=== PATIENT | female | born 1975 | race Caucasian/White ===

== ENCOUNTER 2024-08-19 13:19 | Emergency (ER) | payer BC, SELFPAY ==
[2024-08-19 13:37] VITALS: BP 119/79; PULSE 74; TEMP 37.1; O2SAT 100; BMI 27.5
--- NOTE | 2024-08-19 14:49 | ED.UPPEXIN1 ---
HPI HPI - Extremity Injury (Upper) General Chief Complaint: Extremity Injury, Upper Stated Complaint: SWOLLEN FINGER Time Seen by Provider: 08/19/24 13:20 Source: patient Mode of arrival: walk-in Limitations: no limitations History of Present Illness HPI narrative: Patient is a 48-year-old female who presents to the emergency department for evaluation of an injury to the left fourth finger. She states she has a Labrador puppy and her finger got caught in the dog's collar while trying to restrain him. Her left fourth finger was injured, she continues to have pain, swelling and bruising. No medications prior to arrival. She has no concern for . She is right-hand dominant. Related Data Previous Rx's ?Medication ?Instructions ?Recorded hydrocodone 5 mg-acetaminophen 325 1 tab PO Q6H PRN pain 3 days #12 08/19/24 mg tablet tabs Allergies Allergy/AdvReac Type Severity Reaction Status Date / Time No Known Drug Allergies Allergy Verified 08/19/24 13:37 Opioid HPI Opioid Management Most Recent Pain and Opioid Data: Last Pain Scale 2 08/19/24 13:43 08/19/24 Review of Systems ROS Constitutional Denies: fever or chills Ears, nose, mouth, and throat Denies: throat pain or nasal congestion Respiratory Denies: cough Gastrointestinal Denies: nausea or vomiting Musculoskeletal Reports: extremity pain; Denies: back pain Integumentary/Breast Denies: rash Neurological Denies: numbness in extremities or weakness in extremities Hematologic/Lymphatic Denies: easy bruising or easy bleeding PFSH PFSH Social History Little interest or pleasure in doing things: not at all Feeling down, depressed, or hopeless: not at all Exam Narrative Exam Narrative: Gen.: Awake, alert, in no distress Head: Normocephalic, atraumatic ENT: Moist mucous membranes Respiratory: No respiratory distress Extremities: Moves extremities equally, left fourth finger with diffuse edema and palmar ecchymosis. Limited flexion at the distal phalanx consistent with flexor tendon injury. Normal extension at the distal phalanx. No fingernail injury or lacerations noted. Psych: Normal mood and affect Neuro: No focal neuro deficit Skin: Warm, dry, intact Constitutional Vital Signs, click to edit/add: Last Vital Signs Temp 98.7 F 08/19/24 13:37 Pulse 74 08/19/24 13:37 Resp 16 08/19/24 13:37 BP 119/79 08/19/24 13:37 Pulse Ox 100 08/19/24 13:37 O2 Del Method Room Air 08/19/24 13:37 Course Vital Signs Vital signs: Vital Signs Temperature 98.7 F 08/19/24 13:37 Pulse Rate 74 08/19/24 13:37 Respiratory Rate 16 08/19/24 13:37 Blood Pressure 119/79 08/19/24 13:37 Pulse Oximetry 100 08/19/24 13:37 Oxygen Delivery Method Room Air 08/19/24 13:37 Temperature 98.7 F 08/19/24 13:37 Pulse Rate 74 08/19/24 13:37 Respiratory Rate 16 08/19/24 13:37 Blood Pressure 119/79 08/19/24 13:37 Pulse Oximetry 100 08/19/24 13:37 Oxygen Delivery Method Room Air 08/19/24 13:37 MDM - Extremity Injury (Upper) MDM Narrative Medical decision making narrative: X-rays show the patient has a cortical avulsion/fracture at the base of the distal phalanx with an associated lytic lesion which may represent osteomyelitis versus mass. Patient states she did have an injury to this finger years ago. Prior to the injury she had no focal medical complaints to the area. She was made aware of this lesion, I discussed the case with Dr. Martinez for orthopedics who will see the patient on Thursday. Patient was instructed to go to the office at noon on Thursday, return to the ER if symptoms change or worsen. She did have [address] to the left fourth finger on arrival that she was unable to remove due to pain and swelling. It was strongly recommended to the patient that we cut off the rings to prevent vascular or nerve compromise. Patient is agreeable and the rings were removed easily with trauma mickey. She remains neurovascularly intact pre and post splint application. Rest, ice, elevate. Follow-up with orthopedics and return to the ER if symptoms change or worsen SUPERVISED APC VISIT, PHYSICIAN ATTESTATION: Based on the medical record the care appears appropriate. ? Medical Records Attestation: I reviewed the patient's medical records. Discharge Plan Discharge Chief Complaint: Extremity Injury, Upper Clinical Impression: Fracture of distal phalanx of finger, Injury of flexor tendon of left hand Patient Disposition: Home, Self-Care Time of Disposition Decision: 14:42 Condition: Good Prescriptions / Home Meds: New hydrocodone-acetaminophen 5-325 mg tablet 1 tab PO Q6H PRN (Reason: pain) 3 Days Qty: 12 0RF Rx Instructions: DX: S62.601A Print Language: Afghan Instructions: Finger Fracture (ED), Tendon Rupture (ED) Referrals: Physician,Non-Staff, [Primary Care Provider] - 1 week Jatin Pool MD [Physician] - 08/22/24 12:00 pm ([address] [place] [address] )
== END 2024-08-19 14:58 | disposition home or self-care (01) ==
PROVIDERS: Emergency Provider Emergency Medicine
DX: S62.635A Displaced fracture of distal phalanx of left ring finger, initial encounter for closed fracture (principal); S66.105A Unspecified injury of flexor muscle, fascia and tendon of left ring finger at wrist and hand level, initial encounter; X50.1XXA Overexertion from prolonged static or awkward postures, initial encounter
CPT/HCPCS: 73140; 99283

== ENCOUNTER 2024-08-25 12:23 | Outpatient (OUT) | payer BC, SELFPAY | END 2024-08-25 12:24 | disposition home or self-care (01) | LOC: MRI 12:23 | PROVIDERS: Visit Provider Student in an Organized Health Care Education/Training Program | DX: R22.32 Localized swelling, mass and lump, left upper limb (principal); M79.645 Pain in left finger(s); D16.12 Benign neoplasm of short bones of left upper limb | CPT/HCPCS: 73220; A9575 ==